=== PATIENT | female | born 1965 | race African-American/Black ===

== ENCOUNTER → 2017-10-26 | Day surgery (SDC) | payer BC ==
[~2017-10-26] MED LIST: LIDOCAINE 1% PF 2 ML VIAL. ID; LIDOCAINE 2% PF Vial for OR 5 ML VIAL.; MIDAZOLAM HCL/PF 2 MG/2 ML VIAL. IV; PROPOFOL 40 ML IV; fentaNYL PF VIAL 100 MCG/2 ML VIAL IV
[2017-10-26 09:54] LABS: POC GLUCOSE 126 mg/dL (70-99)
[2017-10-26] MEDS: IV RINGERS,LACTATED 1000ML 1,000 ML IV ×2 (09:56)
== END | disposition home or self-care (01) ==
LOC: SURG 09:16
DX: Z12.11 Encounter for screening for malignant neoplasm of colon (principal); K64.0 First degree hemorrhoids; D12.2 Benign neoplasm of ascending colon; K57.30 Diverticulosis of large intestine without perforation or abscess without bleeding; E78.00 Pure hypercholesterolemia, unspecified; I10 Essential (primary) hypertension; J45.909 Unspecified asthma, uncomplicated; E11.9 Type 2 diabetes mellitus without complications; Z86.39 Personal history of other endocrine, nutritional and metabolic disease
CPT/HCPCS: 45380; 82962; 88305; J2704